=== PATIENT | female | born 1950 | race Caucasian/White ===

== ENCOUNTER 2019-06-15 09:09 | Day surgery (SDC) | payer MEDICARE, BC ==
[2019-06-06 11:56] LABS: BASOPHILS % (AUTO) 0.7 % (0-1); EOSINOPHILS # (AUTO) 0.1 X10'3 (0-0.9); LYMPHOCYTES # (AUTO) 2.4 X10'3 (1.1-4.8); LYMPHOCYTES % (AUTO) 41.4 % (21-51); MEAN CORPUSCULAR HEMOGLOBIN 32.7 PG (27.0-31.0); MEAN CORPUSCULAR HGB CONC 33.5 g/dL (33.0-36.5); MEAN CORPUSCULAR VOLUME 97.4 FL (78-98); MEAN PLATELET VOLUME 8.6 FL (7.4-10.4); MONOCYTES # (AUTO) 0.4 X10'3 (0-0.9); MONOCYTES % (AUTO) 7.6 % (2-12); NEUTROPHILS # (AUTO) 2.8 X10'3 (1.8-7.7); NEUTROPHILS % (AUTO) 48.3 % (42-75); PRE OP HEMATOCRIT 40.6 % (35.0-45.0); PRE OP HEMOGLOBIN 13.6 g/dL (12.0-16.0); PRE OP PLATELET COUNT 266 X10'3 (140-440); RED BLOOD COUNT 4.17 X10'6 (4.20-5.60); RED CELL DISTRIBUTION WIDTH 12.7 % (11.5-14.5)
[2019-06-06 12:06] LABS: ALBUMIN 4.4 G/DL (3.4-5.0); ALBUMIN/GLOBULIN RATIO 1.3 (1.1-1.5); ALKALINE PHOSPHATASE 43 IU/L (46-116); BLOOD UREA NITROGEN 19 MG/DL (7-18); BUN/CREATININE RATIO 25.3 (6.6-38.0); CALCIUM 9.7 MG/DL (8.5-10.1); CHLORIDE 102 MMOL/L (99-107); CREATININE 0.75 MG/DL (0.40-0.90); PRE OP ALT 57 U/L (30-65); PRE OP ANION GAP 5 (8-16); PRE OP AST 38 U/L (10-37); PRE OP BILIRUB, TOTAL 0.3 MG/DL (0.0-1.0); PRE OP GLUCOSE 94 MG/DL (70-104); PRE OP POTASSIUM 4.4 MMOL/L (3.4-5.1); PRE OP SODIUM 139 MMOL/L (135-145); TOTAL CARBON DIOXIDE 32.1 MMOL/L (24-32); TOTAL PROTEIN 7.9 G/DL (6.4-8.2); eGFR 77 ML/MIN
[2019-06-15] VITALS (8 sets, daily range): BP systolic 108–115; BP diastolic 74–76
[~2019-06-15] VITALS: Ht 160 cm; Wt 49.9 kg
[~2019-06-15 09:09] MED LIST: B HEALTHY; CALCIUM; CETI-194 PO; EST1T PO; LACT1CAP73 PO; MAGNESIUM; POTASSIUM; PRAS25CA7; PROG200C11 PO; THYR90TA12 PO; TUMERIC; UBID50TA3 PO; WOMENS; [UNRECOGNIZED DRUG - OTHER]; [UNRECOGNIZED DRUG - OTHER]; famotidine 10mg tablet PO ONE; ringers solution, lacted 1,000 ML IV SCH
[2019-06-15] MEDS ORDERED: ringers solution, lacted 1,000 ML IV SCH (10:09)
[2019-06-15] MEDS ORDERED: proCHLORperazine 10 MG/2 ml inj IV PRN (10:10)
[2019-06-15] MEDS ORDERED: morphine 4 MG/ML inj SYRINge IV PRN ×2 (10:10)
[2019-06-15] MEDS ORDERED: ondansetron/PF 4mg/2ml inj IV PRN (10:10)
[2019-06-15] MEDS ORDERED: meperidine/PF 25mg/ml syringe IV PRN ×3 (10:10)
[2019-06-15] MEDS ORDERED: ferric subsulfate solution/paste 1 APPLIC SOL.W.APPL TP ONE (10:45)
[2019-06-15] MEDS ORDERED: sevoflurane 250ml liquid IH ONE (11:43)
[2019-06-15] MEDS ORDERED: dexamethasone sod phosphate 10mg/ml inj ONE (11:43)
[2019-06-15] MEDS ORDERED: fentaNYL/PF 50MCG/1 ML 2ML syringe ONE (11:47)
[2019-06-15] MEDS ORDERED: propofol inj 20 ML IV ONE (11:47)
[2019-06-15] MEDS ORDERED: midazolam 2 mg/2 ml injection ONE (11:47)
[2019-06-15] MEDS ORDERED: dexamethasone sod phosphate 4mg/ml inj. ONE (12:07)
[2019-06-15] MEDS ORDERED: ondansetron/PF 4mg/2ml inj ONE (12:07)
[2019-06-15] MEDS ORDERED: LIDOcaine 1% W/epiNEPHrine 1:200,000 10ml vial ONE (12:10)
[2019-06-15] MEDS ORDERED: oxyCODONE/APAP 5-325mg tablet PO ONE (12:30)
--- NOTE | 2019-06-15 12:35 | NUR ---
ADMITTED TO PACU FROM OR ACCOMPANIED BY ANESTHESIA. INTIAL PHYSICAL ASSESSMENT DONE AND RECORDED. REPORT RECEIVED FROM ANESTHESIA.
--- NOTE | 2019-06-15 13:35 | NUR ---
DISCHARGE CRITERIA MET, DISCHARGE INSTRUCTIONS GIVEN, DEMONSTRATES VERBAL UNDERSTANDING. DISCHARGED HOME IN GOOD CONDITION.
== END 2019-06-15 13:35 | disposition home or self-care (01) ==
LOC: PAS 09:09
PROVIDERS: ATTEND Obstetrics & Gynecology
DX: N87.9 Dysplasia of cervix uteri, unspecified (principal); N72 Inflammatory disease of cervix uteri; E03.9 Hypothyroidism, unspecified; Z98.890 Other specified postprocedural states; Z98.1 Arthrodesis status; Z87.891 Personal history of nicotine dependence; Z79.899 Other long term (current) drug therapy; Z83.3 Family history of diabetes mellitus
CPT/HCPCS: 36415; 57522; 80053; 82948; 85025; 86870; 86885; 86900; 86901; 86902; 86905; 93005; J1100; J2250; J2405; J2704; J3010; J7120; A4618; A7000